=== PATIENT | female | born 1995 | race American Indian/Alaskan Native ===

== ENCOUNTER 2016-09-22 10:27 | Emergency (ER) | payer SELFPAY ==
[2016-09-22 11:22] VITALS: BP 110/68
--- NOTE | 2016-09-22 12:46 | XRay Report ---
Right foot 3 views. Findings: There is a spiral fracture of the fifth proximal phalanx. No other fractures or dislocations are seen.
--- NOTE | 2016-09-22 14:35 | Emergency Department Report ---
ED Lower Extremity HPI - General Chief Complaint: Extremity Injury, Lower Stated Complaint: POSS BROKEN/DISLOCATED R TOE Time Seen by Provider: 09/22/16 14:33 Source: patient Mode of arrival: Ambulatory Limitations: No Limitations - History of Present Illness Initial Comments: Patient is a 21-year-old female presents to the ED complaining of right fifth toe pain 1 day. Patient states last night she got up to use the bathroom in the dark. Patient states she hit her right toe on the door. Patient states the pain worsened this morning so she came in. Patient states right toe began swelling and the difficult to move patient states pain worsens with weightbearing on her last toe. She denies fevers chills/nausea/vomiting/shortness of breath/chest pain/any other problems - Related Data Previous Rx's Medication Instructions Recorded Last Taken Type Acetaminophen/Codeine [Tylenol #3] 1 tab PO Q6H PRN #12 tab 09/22/16 Unknown Rx Ibuprofen [Motrin] 800 mg PO Q8HR PRN #30 tablet 09/22/16 Unknown Rx Allergies Allergy/AdvReac Type Severity Reaction Status Date / Time pineapple Allergy Anaphylaxis Verified 09/22/16 11:22 ED Review of Systems ROS: Stated complaint: POSS BROKEN/DISLOCATED R TOE Other details as noted in HPI Constitutional: denies: chills, fever Eyes: denies: eye pain, eye discharge, vision change ENT: denies: ear pain, throat pain Respiratory: denies: cough, orthopnea, shortness of breath, wheezing Cardiovascular: denies: chest pain, palpitations Endocrine: no symptoms reported Gastrointestinal: denies: abdominal pain, nausea, vomiting, diarrhea, constipation Genitourinary: denies: urgency, dysuria, discharge Musculoskeletal: joint swelling, arthralgia. denies: back pain Skin: denies: rash, lesions Neurological: denies: headache, weakness, numbness, paresthesias, abnormal gait Psychiatric: denies: anxiety, depression Hematological/Lymphatic: denies: easy bleeding, easy bruising, swollen glands ED Past Medical Hx - Medications Home Medications: Home Medications Medication Instructions Recorded Confirmed Last Taken Type Acetaminophen/Codeine [Tylenol #3] 1 tab PO Q6H PRN #12 tab 09/22/16 Unknown Rx Ibuprofen [Motrin] 800 mg PO Q8HR PRN #30 tablet 09/22/16 Unknown Rx ED Physical Exam - General Limitations: No Limitations General appearance: alert, in no apparent distress - Head Head exam: Present: atraumatic, normocephalic - Eye Eye exam: Present: PERRL, EOMI Pupils: Present: normal accommodation - ENT ENT exam: Present: mucous membranes moist - Neck Neck exam: Present: normal inspection - Respiratory Respiratory exam: Present: normal lung sounds bilaterally. Absent: respiratory distress - Cardiovascular Cardiovascular Exam: Present: regular rate, normal rhythm. Absent: systolic murmur, diastolic murmur, rubs, gallop - GI/Abdominal GI/Abdominal exam: Present: soft, normal bowel sounds - Extremities Exam Extremities exam: Present: normal inspection - Expanded Lower Extremity Exam Right Hip exam: Present: full ROM. Absent: tenderness, swelling, abrasion, ecchymosis Upper Leg exam: Present: normal inspection, full ROM. Absent: tenderness, swelling Knee exam: Present: normal inspection, full ROM, tenderness. Absent: swelling, abrasion, laceration, ecchymosis Lower Leg exam: Present: normal inspection, full ROM. Absent: tenderness, swelling, abrasion Ankle exam: Present: normal inspection, full ROM. Absent: tenderness, swelling Foot/Toe exam: Present: full ROM, tenderness (right), swelling (right fifth digit), ecchymosis. Absent: abrasion, laceration, deformity, crepidus, dislocation, erythema, amputation, puncture wound, foreign body, calcaneal tenderness Neuro vascular tendon exam: Present: no vascular compromise. Absent: pulse deficit, abnormal cap refill, motor deficit, sensory deficit, pallor Gait: Positive: observed and limited by pain - Back Exam Back exam: Present: normal inspection, full ROM. Absent: tenderness, CVA tenderness (R), CVA tenderness (L), muscle spasm - Neurological Exam Neurological exam: Present: alert, oriented X3, CN II-XII intact, normal gait ( with a limp) - Psychiatric Psychiatric exam: Present: normal affect, normal mood - Skin Skin exam: Present: warm, dry, intact, normal color. Absent: rash ED Course Vital Signs 09/22/16 11:12 Temperature 98.6 F Pulse Rate 89 Respiratory 89 H Rate Blood Pressure 110/68 O2 Sat by Pulse 99 Oximetry ED Lower Extremity MDM - Medical Decision Making 21-year-old female presents with right fracture of the fifth proximal phalanx. Vital signs stable patient in no acute distress. Course: Patient received 2 tablets of [place]. His x-ray of foot shows spiral fracture of the fifth proximal phalanx. Discussed results with patient. Discussed patient needs to follow up with orthopedics doctor as referred. Discussed pain management management at home. Discussed rest and ice, compression, elevation. Discussed the patient will follow instructions as given. Fifth digit is rosemary taped to the fourth digit and the whole Foot is Venkat wrapped and put in an immobilizer. Critical care attestation.: If time is entered above; I have spent that time in minutes in the direct care of this critically ill patient, excluding procedure time. ED Disposition Clinical Impression: Closed fracture of phalanx of right fifth toe Disposition: DISCHARGED TO HOME OR SELFCARE Is pt being admited?: No Does the pt Need Aspirin: No Condition: Stable Instructions: Toe Fracture (ED), RICE Therapy (ED) Prescriptions: Acetaminophen/Codeine [Tylenol #3] 1 tab PO Q6H PRN #12 tab PRN Reason: Pain Ibuprofen [Motrin] 800 mg PO Q8HR PRN #30 tablet PRN Reason: Pain Referrals: PRIMARY CAREMD [Primary Care Provider] - 3-5 Days ARANZA MATOS MD [Staff Physician] - 3-5 Days RENATA DUCKWORTH MD [Staff Physician] - 3-5 Days [facility] [Outside] - 3-[address] [facility] [Outside] - 3-5 Days [facility] [Outside] - 3-5 Days Forms: Work/School Release Form(ED) Time of Disposition: 15:11
[2016-09-22] MEDS ORDERED: NORCO 5/325 PO ONE (14:54)
== END 2016-09-22 16:19 | disposition home or self-care (01) ==
LOC: ED 10:27
DX: S92.511S Displaced fracture of proximal phalanx of right lesser toe(s), sequela (principal); W22.8XXS Striking against or struck by other objects, sequela; Z91.018 Allergy to other foods
CPT/HCPCS: 99284